=== PATIENT | female | born 1960 | race Asian ===

== ENCOUNTER 2018-10-07 07:39 | Day surgery (SDC) | payer OTHER ==
[2018-10-07] MEDS ORDERED: LIDOCAINE 4% SOLUTION 50 ML BTL (09:31)
[2018-10-07] MEDS ORDERED: FENTAnyl 50 MCG/ML VIAL (10:23)
[2018-10-07] MEDS ORDERED: MIDAZOLAM 1 MG/ML 2 ML INJ ×2 (10:23)
== END 2018-10-07 15:40 | disposition home or self-care (01) ==
LOC: GIL 07:39
DX: Z12.11 Encounter for screening for malignant neoplasm of colon (principal); K20.8 Other esophagitis; K26.3 Acute duodenal ulcer without hemorrhage or perforation; R10.13 Epigastric pain
CPT/HCPCS: 43239; 88305; 88312